=== PATIENT | male | born 1995 | race Caucasian/White ===

== ENCOUNTER 2017-08-27 16:21 | Emergency (ER) | payer OTHER ==
--- NOTE | 2017-08-27 17:40 | EDPHY ---
H & P Stated Complaint: Anxiety, stress with school, requesting Ativan as worked for him in the [facility] Source: Patient Exam Limitations: No limitations - Personal History Current Tetanus Diphtheria and Acellular Pertussis (TDAP): Yes - Medical/Surgical History Hx Asthma: No Hx Chronic Respiratory Disease: No Hx Diabetes: No Hx Cardiac Disease: No Hx Renal Disease: No Hx Cirrhosis: No Hx Alcoholism: No Hx HIV/AIDS: No Hx Splenectomy or Spleen Trauma: No Other PMH: Anxiety - Social History Smoking Status: Never smoked Time Seen by Provider: 08/27/17 17:39 HPI/ROS: HPI: This is a 22-year-old male who presents with Chief Complaint: Anxiety, stress with school, requesting Ativan as worked for him in the [facility] Location: psych Quality: ANXIETY, PANIC ATTACK Duration: THIS MORNING PRIOR TO A TEST Signs and Symptoms: no fever, no nausea, no vomiting, no hematemesis, no blood in stool, no abdominal bloating, no diarrhea, no back pain, no urinary symptoms , no testicular/groin pain, no indigestion, no chest pain, no shortness of breath Timing: Acute Severity: Moderate Context: Patient reports that he has a history of anxiety and season outpatient therapist but has refused to be placed on any psychiatric medications over the last few years. He reports that this morning he had a big test around noon and he woke up around 5:00 a.m. With abdominal cramping and had 3-5 bowel movements after waking up this morning due to an upset stomach. He denies any fever, nausea, vomiting, recent antibiotic use. Patient reports that he believes that his abdominal cramping is directly related to him having a panic attack secondary to test anxiety. He is requesting a 1 dose of Ativan. He denies any suicidal ideation, homicidal ideation, hallucinations. Reports that he has a strong support system at home. He is a student at [employer]. Modifying Factors: Outpatient psychiatrist Comment: ROS: see HPI Constitutional: No fever, no chills, no weight loss Eyes: No blurred vision Respiratory: No shortness of breath, no cough Cardiovascular: No chest pain, no palpitations Gastrointestinal: No nausea, no vomiting, no diarrhea, no hematemesis, no blood in stool Genitourinary: No dysuria, no blood in urine Extremities: No myalgias, no edema Neurologic: No weakness, no numbness Skin: No rashes, no petechiae Hematologic: No bruising, no bleeding MEDICAL/SURGICAL/SOCIAL HISTORY: Medical history: Anxiety. Does not take any regular medications. Surgical history: Denies Social history: Nonsmoker. Family history noncontributory. CONSTITUTIONAL: Extremely polite and cooperative young adult white male, awake and alert, no obvious distress HEENT: Atraumatic and normocephalic, PERRL, EOMI. Nares patent; no rhinorrhea; no nasal mucosal edema. Tympanic membranes clear. Oropharynx clear, no exudate and moist pink mucosa. Airway patent. No lymphadenopathy. No meningismus. Cardiovascular: Normal S1/S2, regular rate, regular rhythm, without murmur rub or gallop. PULMONARY/CHEST: Symmetrical and nontender. Clear to auscultation bilaterally. Good air movement. No accessory muscle usage. ABDOMEN: Soft, nondistended, nontender, no rebound, no guarding, no peritoneal signs, no masses or organomegaly. No CVAT. EXTREMITIES: 2/2 pulses, strength 5/5, no deformities, no clubbing, no cyanosis or edema. NEUROLOGICAL: no focal neuro deficits. GCS 15. SKIN: Warm and dry, no erythema. no rash. Good capillary refill. PSYCH: Good eye contact, no flight of ideas, organized thought process, good insight and judgment, no auditory and visual command hallucinations, no suicidal ideation with a plan, no homicidal ideation, not paranoid ([place]) Constitutional: Initial Vital Signs Temperature (C) 36.9 C 08/27/17 16:25 Heart Rate 69 08/27/17 16:25 Respiratory Rate 18 08/27/17 16:25 Blood Pressure 133/84 H 08/27/17 16:25 O2 Sat (%) 96 08/27/17 16:25 O2 Delivery Mode Room Air Allergies/Adverse Reactions: No Known Allergies Allergy (Unverified 08/27/17 16:29) Home Medications: Medication Instructions Recorded hydrOXYzine HCL [Hydroxyzine HCl] 50 mg PO Q12 #4 tablet 08/27/17 Medical Decision Making ED Course/Re-evaluation: Vital signs reviewed upon arrival and are stable. Abdomen is soft and nontender. Doubt surgical process. Does not meet M1 hold or Detainer criteria. Given 1 mg p.o. Ativan as well as a prescription for number for hydroxyzine 5o mg tablets to use as needed for panic attacks. Advised patient to continue to see outpatient psychiatry. This patient was seen under the supervision of my secondary supervising physician. I evaluated care for this patient independently. Discussed this patient with Dr. Wang who did not see the patient. (Silvana Nielson) I did not see this patient while he was in the emergency department. However his care was discussed with the PA while the patient was in the department. I agree with treatment plan and management (Jacky Wang) Differential Diagnosis: Differential diagnosis includes but is not limited to functional depression, situational depression, generalized anxiety disorder, panic attack. (Silvana Nielson) - Data Points Medications Given: Discontinued Medications Lorazepam (Ativan) 1 mg PO EDNOW ONE Stop: 08/27/17 17:50 Last Admin: 08/27/17 17:58 Dose: 1 mg Departure - Departure Disposition: Home, Routine, Self-Care Clinical Impression: Panic attack as reaction to stress Condition: Good Instructions: Anxiety (ED), Panic Attack (ED) Additional Instructions: Call 911 if you have thoughts of hurting or killing yourself or anyone else, or have any new or worsening symptoms that concern you. Referrals: [facility],. [Clinic] - As per Instructions Prescriptions: hydrOXYzine HCL [Hydroxyzine HCl] 50 mg PO Q12 #4 tablet
[2017-08-27] MEDS ORDERED: LORazepam 1 MG TAB PO ONE (17:49)
[2017-08-27 17:56] VITALS: BP 128/69
== END 2017-08-27 18:00 | disposition home or self-care (01) ==
DX: F43.0 Acute stress reaction (principal)

== ENCOUNTER 2018-05-22 10:22 | Day surgery (SDC) | payer OTHER ==
[2018-05-22] MEDS ORDERED: ceFAZolin 2 GM/DEXTROSE 100 ML IV ONE (10:29)
[2018-05-22] MEDS ORDERED: LR 1,000 ML IV ONE (10:30)
--- NOTE | 2018-05-22 11:22 | PDANEPAE ---
ANE Past Medical History - Cardiovascular History Hx Hypertension: No Hx Arrhythmias: No Hx Chest Pain: No Hx Coronary Artery / Peripheral Vascular Disease: No Hx CHF / Valvular Disease: No Hx Palpitations: No - Pulmonary History Hx COPD: No Hx Asthma/Reactive Airway Disease: No Hx Recent Upper Respiratory Infection: No Hx Oxygen in Use at Home: No Hx Sleep Apnea: No Sleep Apnea Screening Result - Last Documented: Negative - Neurologic History Hx Cerebrovascular Accident: No Hx Seizures: No Hx Dementia: No - Endocrine History Hx Diabetes: No - Renal History Hx Renal Disorders: Yes Renal History Comment: hematuria. urethritis. split urinary stream - Liver History Hx Hepatic Disorders: No - Neurological & Psychiatric Hx Hx Neurological and Psychiatric Disorders: Yes Neurological / Psychiatric History Comment: anxiety - Cancer History Hx Cancer: No - Congenital Disorder History Hx Congenital Disorders: No - GI History Hx Gastrointestinal Disorders: Yes Gastrointestinal History Comment: frequent bowel movements - Other Health History Other Health History: wears contacts - Chronic Pain History Chronic Pain: No - Surgical History Prior Surgeries: colonoscopy 2011 ANE Review of Systems Review of Systems: - Exercise capacity METS (RN): 4 METS ANE Patient History - Allergies Allergies/Adverse Reactions: No Known Allergies Allergy (Verified 05/21/18 17:17) - Home Medications Home Medications: Hcg 05/21/18 [Last Taken 05/21/18] Myomem 05/21/18 [Last Taken 05/21/18] Disability Benefits Specialist Thyroid 05/21/18 [Last Taken 05/21/18] Testosterone 05/21/18 [Last Taken 05/21/18] - NPO status NPO Since - Liquids (Date): 05/22/18 NPO Since - Liquids (Time): 09:45 NPO Since - Solids (Date): 05/22/18 NPO Since - Solids (Time): 00:01 - Smoking Hx Smoking Status: Never smoked - Family Anes Hx Family Hx Anesthesia Complications: none ANE Labs/Vital Signs - Vital Signs Height: 190.5 cm Weight: 86.183 kg ANE Physical Exam - Airway Mallampati Score: Class 2 - ASA Status ASA Status: II ANE Anesthesia Plan Anesthesia Plan: GA w LMA
[2018-05-22] MEDS ORDERED: MIDAZOLAM 2 MG/2 ML VIAL ONE (11:45)
[2018-05-22] MEDS ORDERED: METOCLOPRAMIDE 10 MG/2 ML VIAL ONE (11:47)
[2018-05-22] MEDS ORDERED: fentaNYL 100 MCG/2 ML INJ ONE ×3 (11:47→14:21)
[2018-05-22] MEDS ORDERED: ONDANSETRON 4 MG/2 ML VIAL ONE (11:47)
[2018-05-22] MEDS ORDERED: PROPOFOL 200 MG/20 ML VIAL ONE (11:47)
[2018-05-22] MEDS ORDERED: LIDOCAINE 2% JELLY 6 ML TOPICAL SYR ONE (11:47)
--- NOTE | 2018-05-22 12:12 | PDHPUP ---
History & Physical Update H&P update statement: This history and physical update is based on an assessment of the patient which was completed after admission or registration (within 24 hours), but prior to the surgery/procedure. H&P update: no change in patient's condition since H&P completed
[2018-05-22] MEDS ORDERED: NALOXONE HCL 0.4 MG/ML INJ IVP PRN (12:59)
[2018-05-22] MEDS ORDERED: LR 500 ML IV PRN (12:59)
--- NOTE | 2018-05-22 13:00 | POSTANESTH ---
Post Anesthetic Evaluation Cardiovascular Status: Normal, Stable Respiratory Status: Normal, Stable Level of Consciousness/Mental Status: Can Participate in Eval Pain Control: Adequate, Prn Tx Ordered Nausea/Vomiting Control: Adequate, Prn Tx Ordered Complications Possibly Related to Anesthesia: None Noted
[2018-05-22] MEDS: DIAZEPAM 5 MG/ML 1 ML SYR IVP PRN ×3 (13:23→13:49)
[2018-05-22] MEDS: fentaNYL 100 MCG/2 ML INJ IVP PRN ×4 (14:06→15:09)
[2018-05-22] MEDS ORDERED: MIDAZOLAM 2 MG/2 ML VIAL IVP ONE (14:08)
--- NOTE | 2018-05-22 14:24 | GOP ---
[f rep st] OPERATIVE REPORT DATE OF OPERATION: SURGEON: Andrae Walden MD ANESTHESIA: General. PREOPERATIVE DIAGNOSIS: Urethral stricture. POSTOPERATIVE DIAGNOSIS: Urethral stricture. PROCEDURE PERFORMED: Cystoscopy with laser urethrotomy. FINDINGS: INDICATIONS: This is a young man with voiding difficulties. DESCRIPTION OF PROCEDURE: Consent obtained. The patient was brought into the operating room. Once a timeout was performed and he received his Ancef, he underwent general anesthesia and was then put i n the lithotomy position and prepped and draped in normal sterile fashion. A 22-Salvadorean rigid scope w as passed into the bladder under direct vision. In the mid urethra, there was a stricture that was p inpoint in size in the area of the membranous urethra. A Sensor wire was passed through this and fol lowed into the bladder. A 550-micron Holmium laser fiber was then utilized to cut the stricture at t he 12 o'clock position. Once this cut was made sufficiently, the 22-Salvadorean scope was passed into the bladder. No other abnormalities were detected. There was mild trabeculation within the bladder. R einspection of the stricture showed no other areas that needed incising. A 20-Salvadorean shinnecock-tip cat heter was then put in over the wire. The bladder was drained. The patient was transferred to the re covery room in good condition. /[id number]/MODL
[2018-05-22 15:30] VITALS: BP 125/72
== END 2018-05-22 15:48 | disposition home or self-care (01) ==
LOC: FSGY 10:22
PROVIDERS: ATTEND Urology
PROC: 0T5D8ZZ Destruction of Urethra, Via Natural or Artificial Opening Endoscopic (ICD-10-PCS; principal; 2018-05-22 11:45)
DX: N35.913 Unspecified membranous urethral stricture, male (principal); R31.9 Hematuria, unspecified; R39.13 Splitting of urinary stream; N34.2 Other urethritis
CPT/HCPCS: 52214; C1769; J0690; J2250; J2405; J2704; J2765; J3010; J3360